=== PATIENT | female | born 1960 | race African-American/Black ===

== ENCOUNTER 2022-02-19 10:00 | Day surgery (SDC) | payer BC ==
[~2022-02-19] VITALS: Ht 167.6 cm; Wt 68.0 kg
[~2022-02-19 10:00] MED LIST: ALBENZA200 MG PO; AMLODIPINE
[2022-02-19] MEDS ORDERED: NORVASC5 M1 PO (10:14)
[2022-02-19 12:05] VITALS: BP 144/89
== END 2022-02-19 12:15 | disposition home or self-care (01) | DRG 951 ==
LOC: ENDO 10:00 → ORM 11:05 → ENDO 11:05 → ORM 11:45 → ENDO 12:15 → ORM 12:30
PROVIDERS: ATTEND Surgery
PROC: 0DJD8ZZ Inspection of Lower Intestinal Tract, Via Natural or Artificial Opening Endoscopic (ICD-10-PCS; principal; 2022-02-19)
DX: Z12.11 Encounter for screening for malignant neoplasm of colon (principal); K64.8 Other hemorrhoids; I10 Essential (primary) hypertension; Z80.0 Family history of malignant neoplasm of digestive organs